=== PATIENT | female | born 1985 | race Caucasian/White ===

== ENCOUNTER 2020-06-11 18:43 | Emergency (ER) | payer BC ==
[~2020-06-11] VITALS: Ht 160 cm; Wt 68.5 kg
[2020-06-11 18:49] VITALS: Ht 160 cm; Wt 68.5 kg
[2020-06-11 19:30] VITALS: BP 143/84
== END 2020-06-11 19:30 | disposition home or self-care (01) ==
LOC: ED 18:43
DX: R07.89 Other chest pain (principal); Z98.890 Other specified postprocedural states; Z98.51 Tubal ligation status